=== PATIENT | female | born 1940 | race Caucasian/White ===

== ENCOUNTER → 2018-12-10 | Day surgery (SDC) | payer MEDICARE ==
[2018-12-06 13:00] LABS: BASOPHILS % 0.6 % (0.0-1.0); EOSINOPHILS # (AUTO) 0.1 (0.0-0.4); EOSINOPHILS % 1.4 % (0.0-6.0); HEMATOCRIT 40.8 % (34.2-44.1); HEMOGLOBIN 13.6 g/dL (12.0-16.0); LYMPHOCYTES # (AUTO) 2.5 (1.0-3.2); LYMPHOCYTES % 35.6 % (18.0-39.1); MEAN CORPUSCULAR HEMOGLOBIN 29.8 pg (28-32); MEAN CORPUSCULAR HGB CONC 33.3 g/dL (31-35); MEAN CORPUSCULAR VOLUME 89.5 fL (81-99); MONOCYTES # (AUTO) 0.6 (0.2-0.8); MONOCYTES % 9.2 % (4.4-11.3); NEUTROPHILS # (AUTO) 3.7 (2.1-6.9); NEUTROPHILS % 52.8 % (38.7-80.0); PLATELET COUNT 302 x10e3/uL (140-360); RED BLOOD COUNT 4.56 x10e6/uL (3.6-5.1); RED CELL DISTRIBUTION WIDTH 12.6 % (11.7-14.4)
[~2018-12-10] MED LIST: GLYBURIDE5 MG PO; LOSARTAN-HCTZ1 EAC2 PO; LOSARTAN-HCTZ1 EACH PO; MONTELUKAST SOD10 MG PO; PANTOPRAZOLE SO40 MG PO; PROPOFOL IV EMULSION 10 MG/ML 50 ML VIAL ONE; RESTASIS1 EACH PO
--- OUTSIDE RECORDS SUMMARY | 2018-12-10 05:12 | XMS REPORT ---
[facility] Address Unknown Phone Unavailable Care Team Providers Care Clinic Assistant Name Role Phone Unavailable Unavailable Payers Payer Name Policy Type Policy Number Effective Date Expiration Date Problems This patient has no known problems. Allergies, Adverse Reactions, Alerts Allergy Name Allergy Type Status Severity Reaction(s) Onset Date Inactive Date Treating Clinician Comments DAMARI Inhibitors DA Active SV 2008-12-30 00:00:00 Medications This patient has no known medications.
[2018-12-10 07:55] VITALS: BP 113/65
--- NOTE | 2018-12-10 15:14 | Operative Report ---
DATE OF PROCEDURE: SURGEON: Didier Rollins MD NAME OF PROCEDURE: Colonoscopy. PREPROCEDURE DIAGNOSIS: The patient with history of abnormal CAT scan, diverticulitis, history of polyps, rule out colorectal neoplasm, diverticular stricture. PROCEDURE: After informed written consent premedications with monitored anesthesia care, standard adult video assignment pediatric video colonoscope was introduced into the rectum and all the way into the terminal ileum. The terminal ileum, cecum, appendiceal orifice appeared to be normal. Ascending colon showed moderate diverticulosis. Transverse colon was unremarkable. Descending sigmoid showed extensive diverticulosis. Small hemorrhoids noted. IMPRESSION: Extensive diverticulosis in the left colon with mild diverticulosis in the right colon. RECOMMENDATION: High-fiber diet, probiotics. Follow up with primary care physician. Come back and see us as needed. Further recommendations will be based on patient's clinical course. Didier Rollins MD SR/MODL /[id number]
== END | disposition home or self-care (01) ==
LOC: OR 05:00
PROVIDERS: ATTEND Internal Medicine Gastroenterology
DX: R93.89 Abnormal findings on diagnostic imaging of other specified body structures (principal); Z86.010 Personal history of colon polyps; K57.30 Diverticulosis of large intestine without perforation or abscess without bleeding; K64.9 Unspecified hemorrhoids; K21.9 Gastro-esophageal reflux disease without esophagitis; R14.0 Abdominal distension (gaseous); Z71.3 Dietary counseling and surveillance; E66.9 Obesity, unspecified; J44.9 Chronic obstructive pulmonary disease, unspecified; I10 Essential (primary) hypertension; F32.9 Major depressive disorder, single episode, unspecified; Z88.8 Allergy status to other drugs, medicaments and biological substances; Z01.810 Encounter for preprocedural cardiovascular examination; Z01.812 Encounter for preprocedural laboratory examination; Z68.31 Body mass index [BMI] 31.0-31.9, adult; Z87.891 Personal history of nicotine dependence
CPT/HCPCS: 36415; 45378; 85025; 93005; J2704